=== PATIENT | male | born 1940 | race Caucasian/White ===

== ENCOUNTER 2018-10-31 10:53 | Inpatient (IN) | payer MEDICARE, MEDICAID | END 2018-11-03 12:35 | LOC: PAS IN 10:53 → ORTHO 4S 18:43 | PROC: 0RQK0ZZ Repair Left Shoulder Joint, Open Approach (ICD-10-PCS; principal; 2018-10-31 14:15) | DX: M97.32XA Periprosthetic fracture around internal prosthetic left shoulder joint, initial encounter (principal); D62 Acute posthemorrhagic anemia; M75.122 Complete rotator cuff tear or rupture of left shoulder, not specified as traumatic; Z96.612 Presence of left artificial shoulder joint; M25.512 Pain in left shoulder ==

== ENCOUNTER 2021-03-16 07:59 | Day surgery (SDC) | payer MEDICARE, MEDICAID ==
[2021-03-12 11:23] LABS: ALBUMIN 3.8 G/DL (3.4-5.0); ALBUMIN/GLOBULIN RATIO 0.9 (1.1-1.5); ALKALINE PHOSPHATASE 71 IU/L (46-116); BLOOD UREA NITROGEN 19 MG/DL (7-18); BUN/CREATININE RATIO 16.4 (5.4-32.0); CALCIUM 9.1 MG/DL (8.5-10.1); CHLORIDE 105 MMOL/L (99-107); CREATININE 1.16 MG/DL (0.60-1.10); PRE OP ALT 17 U/L (30-65); PRE OP ANION GAP 9 (8-16); PRE OP AST 9 U/L (10-37); PRE OP BILIRUB, TOTAL 0.6 MG/DL (0.0-1.0); PRE OP GLUCOSE 116 MG/DL (70-104); PRE OP POTASSIUM 4.7 MMOL/L (3.4-5.1); PRE OP SODIUM 144 MMOL/L (135-145); TOTAL CARBON DIOXIDE 30.2 MMOL/L (24-32); TOTAL PROTEIN 7.9 G/DL (6.4-8.2); eGFR 61 ML/MIN
[2021-03-12 11:29] LABS: BASOPHILS # (AUTO) 0.1 X10'3 (0-0.2); BASOPHILS % (AUTO) 0.7 % (0-1); EOSINOPHILS # (AUTO) 0.2 X10'3 (0-0.9); EOSINOPHILS % (AUTO) 3.1 % (0-6); LYMPHOCYTES # (AUTO) 0.9 X10'3 (1.1-4.8); LYMPHOCYTES % (AUTO) 11.5 % (21-51); MEAN CORPUSCULAR HGB CONC 32.8 g/dL (33.0-36.5); MEAN CORPUSCULAR VOLUME 88.5 FL (78-98); MONOCYTES # (AUTO) 0.6 X10'3 (0-0.9); MONOCYTES % (AUTO) 7.2 % (2-12); NEUTROPHILS % (AUTO) 77.5 % (42-75); PRE OP HEMATOCRIT 43.5 % (42.0-52.0); PRE OP HEMOGLOBIN 14.3 g/dL (14.0-17.9); PRE OP PLATELET COUNT 271 X10'3 (140-440); RED BLOOD COUNT 4.92 X10'6 (4.70-6.10); RED CELL DISTRIBUTION WIDTH 14.8 % (11.5-14.5)
[~2021-03-16] VITALS: Ht 162.6 cm; Wt 76.1 kg
[2021-03-16] VITALS (7 sets, daily range): BP systolic 110–123; BP diastolic 58–77
--- NOTE | 2021-03-16 07:51 | NUR ---
Received from OR via [facility], accompanied by Anesthesiologist DR DALAL and report given by Anesthesiologist AND OFFAL ROLLER. PT VERY DROWSY, NO S/S OF DISTRESS/DISCOMFORT. RIGHT SHOULDER IN SLING. Addendum: 03/16/21 at 0831 by Yelitza Choi RN Amended: Links added.
[~2021-03-16 07:59] MED LIST: ASPI-612 PO; BUPIVAcaine/PF 2.5mg/ml (0.25%) 10ml vial ONE; LIDOcaine 1%/PF 5ML 10 MG/ML VIAL ONE; METF500T PO; ROPIVAcaine 0.5% (5mg/ml) 30ml vial ONE; cloNIDine hcl/PF 100mcg/ml inj ONE; dexamethasone sod phosphate 4mg/ml inj. ONE; famotidine 20mg tablet PO ONE; fentaNYL/PF 50MCG/1 ML 2ML syringe ONE; propofol inj 20 ML IV ONE; ringers solution, lacted 1,000 ML IV SCH; sevoflurane 250ml liquid IH ONE; triamcinolone acetonide 40mg/ml inj ONE
[2021-03-16] MEDS ORDERED: HYDROcodone/acetaminophen 10/325mg tab PO PRN (08:00)
--- NOTE | 2021-03-16 09:01 | NUR ---
PT'S IV WAS INFILTRATED UPON ARRIVAL, D/CD THEN. INSTRUCTIONS GIVEN TO MOVE FINGERS AND MASSAGE HAND. TO CONTACT MD IF HAS ANY PROBLEMS W/SWELLING. PT STABLE ON FEET AND ABLE TO AMBULATE, D/C INSTRUCTIONS GIVEN AND GONE OVER W/ PT AND PTS SON WHO VERBALIZE UNDERSTANDING. PT D/CD TO HOME VIA W/C TO PRIVATE VEHICLE W/O INCIDENT. Addendum: 03/16/21 at 0929 by Yelitza Choi RN Amended: Links added.
== END 2021-03-16 09:01 | disposition home or self-care (01) ==
LOC: PAS 07:59
PROVIDERS: ATTEND Orthopaedic Surgery
DX: M24.611 Ankylosis, right shoulder (principal); M19.90 Unspecified osteoarthritis, unspecified site; E11.9 Type 2 diabetes mellitus without complications; G89.18 Other acute postprocedural pain; Z20.822 Contact with and (suspected) exposure to COVID-19; Z96.651 Presence of right artificial knee joint; Z96.611 Presence of right artificial shoulder joint; Z96.612 Presence of left artificial shoulder joint; Z79.899 Other long term (current) drug therapy; Z79.84 Long term (current) use of oral hypoglycemic drugs; Z98.890 Other specified postprocedural states; Z87.891 Personal history of nicotine dependence; Z79.82 Long term (current) use of aspirin
CPT/HCPCS: 20610; 23700; 36415; 64415; 76942; 80053; 82948; 85025; J0735; J1100; J2704; J3010; J3301; J3490; U0003; U0005; Z7506; Z7512; A4565; A4618; J2795; J7120